=== PATIENT | female | born 1990 | race Caucasian/White ===

== ENCOUNTER 2023-07-31 04:28 | Day surgery (SDC) | payer OTHER ==
[2023-07-29 14:18] VITALS: BMI 31.3
[2023-07-31] MEDS ORDERED: LIDOCAINE HCL 2% 100 MG/5 ML DISP.SYRIN ONE (12:55)
[2023-07-31] MEDS ORDERED: DEXAMETHASONE SOD PHOSPHATE 4 MG/1 ML VIAL ONE (12:55)
[2023-07-31] MEDS ORDERED: MIDAZOLAM HCL 2 MG/2 ML SINGLE DOSE VIAL ONE (12:55)
[2023-07-31] MEDS ORDERED: ceFAZolin SODIUM 1 GM VIAL ONE (12:55)
[2023-07-31] MEDS ORDERED: PROPOFOL 40 ML ONE (12:55)
[2023-07-31] MEDS ORDERED: ONDANSETRON 4 MG/2 ML VIAL ONE (12:55)
[2023-07-31] MEDS ORDERED: ceFAZolin SODIUM 1 GM VIAL IVPB ONE (13:21)
[2023-07-31] MEDS ORDERED: SUCCINYLCHOLINE CHLORIDE 200 MG/10 ML SYRINGE ONE (13:38)
[2023-07-31] MEDS ORDERED: ACETAMINOPHEN INJECTION 100 ML IVPB ONE (14:09)
[2023-07-31] MEDS ORDERED: ONDANSETRON 4 MG/2 ML VIAL IVPUSH PRN (14:20)
[2023-07-31] MEDS ORDERED: oxyCODONE HCL 5 MG TABLET PO PRN (14:20)
[2023-07-31] MEDS ORDERED: ACETAMINOPHEN 325 MG TABLET (FP) PO PRN (14:23)
[2023-07-31] MEDS ORDERED: ACETAMINOPHEN 1000 MG/100 ML BAG IVPB PRN (14:25)
[2023-07-31] MEDS ORDERED: LACTATED RINGERS SOLUTION 1,000 ML IV SCH (14:30)
[2023-07-31] MEDS ORDERED: HYDROmorphone HCl 2 MG/ML VIAL ONE (15:30)
[2023-07-31] MEDS ORDERED: HYDROmorphone HCl 2 MG/ML VIAL IVPUSH PRN (15:33)
[2023-07-31 16:59] VITALS: TEMP 97.8
[2023-07-31 18:35] VITALS: BP 108/63; PULSE 89; RESP 18
[2023-08-01] MEDS ORDERED: oxyCODONE HCL 5 MG TABLET PO PRN (02:25)
== END 2023-07-31 17:55 | disposition home or self-care (01) ==
LOC: JASU-SURG 04:28
PROVIDERS: ATTEND Obstetrics & Gynecology
PROC: 0U5B8ZZ Destruction of Endometrium, Via Natural or Artificial Opening Endoscopic (ICD-10-PCS; principal; 2023-07-31 13:00)
DX: N92.0 Excessive and frequent menstruation with regular cycle (principal)
CPT/HCPCS: 81025; 88305-TC; 94760